=== PATIENT | male | born 1965 | race Caucasian/White ===

== ENCOUNTER → 2017-01-26 | Outpatient (CLI) | payer MEDICARE ==
[~2017-01-26] MED LIST: ASPIR 8181 MG PO; ASPIRIN CHEWABL81 MG PO; CATAPRES 0.1MG0.1 MG PO; CIPROFLOXACIN500 MG PO; COLCRYS0.6 MG PO; COREG 12.5MG12.5 MG PO; COREG 3.125M3.125 MG PO; ENTRESTO PO; FLEXERIL 10 MG10 MG PO; IMDUR ER TAB 3030 MG PO; INDOCIN 50 MG C50 MG PO; KLOR-CON M2020 MEQ PO; LANTUS SOL100 UNIT/1 SC; LANTUS SOL100 UNIT/1 SQ; LASIX20 MG PO; LEVAQUIN500 MG PO; LIPITOR TAB 2020 MG PO; LISINOPRIL40 MG PO; LORTAB 7.5-3251 EACH PO; MORPHINE SULFAT15 MG PO; NAMENDA 5 MG TAB5 MG PO; NEURONTIN 100100 MG PO; NEURONTIN 400400 MG PO; NITROGLYCERIN0.4 MG SL; NORCO 10-325 T1 EACH PO; PLAVIX 75 MG TA75 MG PO; PROTONIX 40 MG40 M1 PO; PROTONIX40 MG PO; SIMVASTATIN40 MG PO; TART CHERRY CA1 EACH PO; TIZANIDINE HCL4 MG PO; ZOCOR 40 MG TAB40 MG PO; ZOCOR40 MG PO; ZYLOPRIM 100 M100 MG PO; [UNRECOGNIZED DRUG - OTHER] PO
== END ==
LOC: RAD 12:48
DX: M54.2 Cervicalgia (principal); M54.9 Dorsalgia, unspecified; M25.562 Pain in left knee; M25.561 Pain in right knee; R05 Cough; M47.814 Spondylosis without myelopathy or radiculopathy, thoracic region; M47.816 Spondylosis without myelopathy or radiculopathy, lumbar region; M47.812 Spondylosis without myelopathy or radiculopathy, cervical region; M17.0 Bilateral primary osteoarthritis of knee; Z98.890 Other specified postprocedural states; Z88.0 Allergy status to penicillin; Z88.1 Allergy status to other antibiotic agents
CPT/HCPCS: 71020; 72050; 72072; 72110; 73564

== ENCOUNTER 2017-02-11 13:22 | Inpatient (IN) | payer MEDICARE ==
[~2017-02-11] VITALS: Ht 170.2 cm; Wt 99.3 kg
[~2017-02-11 13:22] MED LIST changes: -ASPIR 8181 MG PO; -ASPIRIN CHEWABL81 MG PO; -CATAPRES 0.1MG0.1 MG PO; -CIPROFLOXACIN500 MG PO; -COLCRYS0.6 MG PO; -COREG 12.5MG12.5 MG PO; -COREG 3.125M3.125 MG PO; -ENTRESTO PO; -FLEXERIL 10 MG10 MG PO; -IMDUR ER TAB 3030 MG PO; -KLOR-CON M2020 MEQ PO; -LANTUS SOL100 UNIT/1 SC; -LANTUS SOL100 UNIT/1 SQ; -LASIX20 MG PO; -LEVAQUIN500 MG PO; -LORTAB 7.5-3251 EACH PO; -MORPHINE SULFAT15 MG PO; -NAMENDA 5 MG TAB5 MG PO; -NEURONTIN 100100 MG PO; -NEURONTIN 400400 MG PO; -NITROGLYCERIN0.4 MG SL; -NORCO 10-325 T1 EACH PO; -PLAVIX 75 MG TA75 MG PO; -PROTONIX 40 MG40 M1 PO; -PROTONIX40 MG PO; -TART CHERRY CA1 EACH PO; -TIZANIDINE HCL4 MG PO; -ZOCOR 40 MG TAB40 MG PO; -ZOCOR40 MG PO; -ZYLOPRIM 100 M100 MG PO; -[UNRECOGNIZED DRUG - OTHER] PO
[2017-02-11 14:28] LABS: HEMOGLOBIN 13.2 gm/dl (14.0-17.5); RED BLOOD COUNT 4.44 M/UL (4.20-5.50)
[2017-02-11 14:53] LABS: BUN/CREATININE RATIO 10 (0-10)
[2017-02-12 06:41] LABS: RED BLOOD COUNT 4.45 M/UL (4.20-5.50)
--- NOTE | 2017-02-12 14:43 | NUR ---
PATIENT GOING TO SMOKE WITH FAMILY MEMBER INSTRUCTED SMOKING CESSATION AND OUR FACILITY A NON SMOKING FACILITY [facility]MBERTO UNDERSTANDING
[2017-02-13 05:43] LABS: HEMOGLOBIN 13.1 gm/dl (14.0-17.5); RED BLOOD COUNT 4.49 M/UL (4.20-5.50); WHITE BLOOD COUNT 7.1 K/UL (4.5-11.0)
[2017-02-13 06:03] LABS: BUN/CREATININE RATIO 19 (0-10)
[2017-02-13] MEDS ORDERED: LORTAB 7.5-3251 EACH PO (18:59)
[2017-02-13] MEDS ORDERED: LASIX20 MG PO (19:01)
[2017-06-24] MEDS ORDERED: PROTONIX40 MG PO (03:03)
[2017-06-24] MEDS ORDERED: ASPIRIN CHEWABL81 MG PO (03:04)
[2017-06-24] MEDS ORDERED: COLCRYS0.6 MG PO (03:04)
[2017-06-24] MEDS ORDERED: NAMENDA 5 MG TAB5 MG PO (03:05)
[2017-06-24] MEDS ORDERED: ENTRESTO PO (03:17)
[2017-06-24] MEDS ORDERED: LASIX20 MG PO (03:19)
[2017-06-24] MEDS ORDERED: LIPITOR TAB 2020 MG PO (03:20)
[2017-06-24] MEDS ORDERED: PLAVIX 75 MG TA75 MG PO (03:20)
[2017-06-24] MEDS ORDERED: COREG 12.5MG12.5 MG PO (03:21)
[2017-06-24] MEDS ORDERED: ZYLOPRIM 100 M100 MG PO (03:22)
[2017-06-24] MEDS ORDERED: NEURONTIN 400400 MG PO (03:22)
[2017-06-24] MEDS ORDERED: TIZANIDINE HCL4 MG PO (03:23)
[2017-06-24] MEDS ORDERED: MORPHINE SULFAT15 MG PO (03:24)
[2017-06-25] MEDS ORDERED: KLOR-CON M2020 MEQ PO (16:21)
[2017-07-11] MEDS ORDERED: NEURONTIN 100100 MG PO (00:04)
[2017-07-11] MEDS ORDERED: NAMENDA 5 MG TAB5 MG PO (00:06)
[2017-07-11] MEDS ORDERED: ASPIR 8181 MG PO (00:07)
[2017-07-11] MEDS ORDERED: PLAVIX 75 MG TA75 MG PO (00:08)
[2017-07-11] MEDS ORDERED: PROTONIX 40 MG40 M1 PO (00:08)
[2017-07-11] MEDS ORDERED: COREG 3.125M3.125 MG PO ×2 (00:08→00:19)
[2017-07-11] MEDS ORDERED: LANTUS SOL100 UNIT/1 SQ (00:09)
[2017-07-11] MEDS ORDERED: FLEXERIL 10 MG10 MG PO (00:10)
[2017-07-11] MEDS ORDERED: ZOCOR40 MG PO (00:10)
[2017-07-11] MEDS ORDERED: ZYLOPRIM 100 M100 MG PO (00:10)
[2017-07-11] MEDS ORDERED: LIPITOR TAB 2020 MG PO (00:11)
[2017-07-11] MEDS ORDERED: LORTAB 7.5-3251 EACH PO (00:11)
[2017-07-11] MEDS ORDERED: LASIX20 MG PO (00:12)
[2017-07-11] MEDS ORDERED: [UNRECOGNIZED DRUG - OTHER] PO (00:16)
[2017-07-11] MEDS ORDERED: NITROGLYCERIN0.4 MG SL (00:17)
[2017-07-11] MEDS ORDERED: TART CHERRY CA1 EACH PO (00:17)
[2017-07-11] MEDS ORDERED: ZOCOR 40 MG TAB40 MG PO (00:18)
[2017-07-11] MEDS ORDERED: LEVAQUIN500 MG PO (00:18)
[2017-07-11] MEDS ORDERED: CIPROFLOXACIN500 MG PO (00:18)
[2017-07-11] MEDS ORDERED: CATAPRES 0.1MG0.1 MG PO (00:23)
[2017-07-11] MEDS ORDERED: NORCO 10-325 T1 EACH PO (00:24)
[2017-07-11] MEDS ORDERED: LANTUS SOL100 UNIT/1 SC (00:25)
[2017-07-11] MEDS ORDERED: IMDUR ER TAB 3030 MG PO (12:43)
== END 2017-02-13 19:30 | disposition home or self-care (01) | DRG 291 ==
LOC: ER1 13:22 → ZEROF 15:30 → M/S 18:50
PROVIDERS: Emergency Medicine; Internal Medicine Interventional Cardiology; ADMIT Emergency Medicine
DX: I13.0 Hypertensive heart and chronic kidney disease with heart failure and stage 1 through stage 4 chronic kidney disease, or unspecified chronic kidney disease (principal); I50.43 Acute on chronic combined systolic (congestive) and diastolic (congestive) heart failure; N17.9 Acute kidney failure, unspecified; I69.351 Hemiplegia and hemiparesis following cerebral infarction affecting right dominant side; N39.0 Urinary tract infection, site not specified; I25.10 Atherosclerotic heart disease of native coronary artery without angina pectoris; R07.9 Chest pain, unspecified; D69.6 Thrombocytopenia, unspecified; E11.22 Type 2 diabetes mellitus with diabetic chronic kidney disease; N18.1 Chronic kidney disease, stage 1; F17.210 Nicotine dependence, cigarettes, uncomplicated; I25.5 Ischemic cardiomyopathy; E66.9 Obesity, unspecified; Z68.34 Body mass index [BMI] 34.0-34.9, adult; Z95.1 Presence of aortocoronary bypass graft; Z95.5 Presence of coronary angioplasty implant and graft; Z86.39 Personal history of other endocrine, nutritional and metabolic disease; E78.5 Hyperlipidemia, unspecified; D64.9 Anemia, unspecified; G89.29 Other chronic pain; M54.9 Dorsalgia, unspecified; H54.8 Legal blindness, as defined in USA; I25.2 Old myocardial infarction; Z88.0 Allergy status to penicillin; Z88.3 Allergy status to other anti-infective agents; Z91.018 Allergy to other foods; Z79.82 Long term (current) use of aspirin; Z79.4 Long term (current) use of insulin; Z79.899 Other long term (current) drug therapy; Z28.21 Immunization not carried out because of patient refusal; Z82.49 Family history of ischemic heart disease and other diseases of the circulatory system
CPT/HCPCS: ECHO; 36415; 71010; 80048; 80053; 81001; 82550; 82553; 82962; 83036; 83735; 83874; 83880; 84484; 85025; 85027; 93005; 93306; 94640; 94664; 96374; 99285; J1650; J1940; J2270

== ENCOUNTER → 2017-02-17 | Outpatient (CLI) | payer MEDICARE ==
[~2017-02-17] MED LIST changes: +ASPIR 8181 MG PO; +ASPIRIN CHEWABL81 MG PO; +CATAPRES 0.1MG0.1 MG PO; +CIPROFLOXACIN500 MG PO; +COLCRYS0.6 MG PO; +COREG 12.5MG12.5 MG PO; +COREG 3.125M3.125 MG PO; +ENTRESTO PO; +FLEXERIL 10 MG10 MG PO; +IMDUR ER TAB 3030 MG PO; +KLOR-CON M2020 MEQ PO; +LANTUS SOL100 UNIT/1 SC; +LANTUS SOL100 UNIT/1 SQ; +LASIX20 MG PO; +LEVAQUIN500 MG PO; +LORTAB 7.5-3251 EACH PO; +MORPHINE SULFAT15 MG PO; +NAMENDA 5 MG TAB5 MG PO; +NEURONTIN 100100 MG PO; +NEURONTIN 400400 MG PO; +NITROGLYCERIN0.4 MG SL; +NORCO 10-325 T1 EACH PO; +PLAVIX 75 MG TA75 MG PO; +PROTONIX 40 MG40 M1 PO; +PROTONIX40 MG PO; +TART CHERRY CA1 EACH PO; +TIZANIDINE HCL4 MG PO; +ZOCOR 40 MG TAB40 MG PO; +ZOCOR40 MG PO; +ZYLOPRIM 100 M100 MG PO; +[UNRECOGNIZED DRUG - OTHER] PO
== END ==
LOC: HEART 5 08:31
DX: I25.10 Atherosclerotic heart disease of native coronary artery without angina pectoris (principal); I50.20 Unspecified systolic (congestive) heart failure; I51.9 Heart disease, unspecified
CPT/HCPCS: 78452; A9502; J2785

== ENCOUNTER → 2017-03-10 | Outpatient (CLI) | payer MEDICARE | LOC: CT 03-03 08:00 | DX: M54.5 Low back pain (principal); M50.323 Other cervical disc degeneration at C6-C7 level; Z98.890 Other specified postprocedural states | CPT/HCPCS: 72125 ==

== ENCOUNTER → 2017-04-13 | Outpatient (CLI) | payer MEDICARE ==
[2017-04-13 12:50] LABS: HEMOGLOBIN 16.3 gm/dl (14.0-17.5); RED BLOOD COUNT 5.57 M/UL (4.20-5.50); WHITE BLOOD COUNT 8.4 K/UL (4.5-11.0)
[2017-04-13 13:11] LABS: BUN/CREATININE RATIO 9 (0-10)
== END ==
LOC: LAB 12:05
PROVIDERS: Internal Medicine Cardiovascular Disease
DX: I50.22 Chronic systolic (congestive) heart failure (principal); I42.9 Cardiomyopathy, unspecified; I25.10 Atherosclerotic heart disease of native coronary artery without angina pectoris; Z95.1 Presence of aortocoronary bypass graft
CPT/HCPCS: 71020; 80048; 85025

== ENCOUNTER 2017-04-14 06:58 | Outpatient (CLI) | payer MEDICARE ==
[~2017-04-14] VITALS: Ht 170.2 cm; Wt 106.6 kg
[~2017-04-14 06:58] MED LIST changes: -ASPIR 8181 MG PO; -ASPIRIN CHEWABL81 MG PO; -CATAPRES 0.1MG0.1 MG PO; -CIPROFLOXACIN500 MG PO; -COLCRYS0.6 MG PO; -COREG 12.5MG12.5 MG PO; -COREG 3.125M3.125 MG PO; -ENTRESTO PO; -FLEXERIL 10 MG10 MG PO; -IMDUR ER TAB 3030 MG PO; -KLOR-CON M2020 MEQ PO; -LANTUS SOL100 UNIT/1 SC; -LANTUS SOL100 UNIT/1 SQ; -LEVAQUIN500 MG PO; -MORPHINE SULFAT15 MG PO; -NAMENDA 5 MG TAB5 MG PO; -NEURONTIN 100100 MG PO; -NEURONTIN 400400 MG PO; -NITROGLYCERIN0.4 MG SL; -NORCO 10-325 T1 EACH PO; -PLAVIX 75 MG TA75 MG PO; -PROTONIX 40 MG40 M1 PO; -PROTONIX40 MG PO; -TART CHERRY CA1 EACH PO; -TIZANIDINE HCL4 MG PO; -ZOCOR 40 MG TAB40 MG PO; -ZOCOR40 MG PO; -ZYLOPRIM 100 M100 MG PO; -[UNRECOGNIZED DRUG - OTHER] PO
[2017-06-24] MEDS ORDERED: PROTONIX40 MG PO (03:03)
[2017-06-24] MEDS ORDERED: ASPIRIN CHEWABL81 MG PO (03:04)
[2017-06-24] MEDS ORDERED: COLCRYS0.6 MG PO (03:04)
[2017-06-24] MEDS ORDERED: NAMENDA 5 MG TAB5 MG PO (03:05)
[2017-06-24] MEDS ORDERED: ENTRESTO PO (03:17)
[2017-06-24] MEDS ORDERED: LASIX20 MG PO (03:19)
[2017-06-24] MEDS ORDERED: LIPITOR TAB 2020 MG PO (03:20)
[2017-06-24] MEDS ORDERED: PLAVIX 75 MG TA75 MG PO (03:20)
[2017-06-24] MEDS ORDERED: COREG 12.5MG12.5 MG PO (03:21)
[2017-06-24] MEDS ORDERED: NEURONTIN 400400 MG PO (03:22)
[2017-06-24] MEDS ORDERED: ZYLOPRIM 100 M100 MG PO (03:22)
[2017-06-24] MEDS ORDERED: TIZANIDINE HCL4 MG PO (03:23)
[2017-06-24] MEDS ORDERED: MORPHINE SULFAT15 MG PO (03:24)
[2017-06-25] MEDS ORDERED: KLOR-CON M2020 MEQ PO (16:21)
[2017-07-11] MEDS ORDERED: NEURONTIN 100100 MG PO (00:04)
[2017-07-11] MEDS ORDERED: NAMENDA 5 MG TAB5 MG PO (00:06)
[2017-07-11] MEDS ORDERED: ASPIR 8181 MG PO (00:07)
[2017-07-11] MEDS ORDERED: PLAVIX 75 MG TA75 MG PO (00:08)
[2017-07-11] MEDS ORDERED: COREG 3.125M3.125 MG PO ×2 (00:08→00:19)
[2017-07-11] MEDS ORDERED: PROTONIX 40 MG40 M1 PO (00:08)
[2017-07-11] MEDS ORDERED: LANTUS SOL100 UNIT/1 SQ (00:09)
[2017-07-11] MEDS ORDERED: ZOCOR40 MG PO (00:10)
[2017-07-11] MEDS ORDERED: ZYLOPRIM 100 M100 MG PO (00:10)
[2017-07-11] MEDS ORDERED: FLEXERIL 10 MG10 MG PO (00:10)
[2017-07-11] MEDS ORDERED: LIPITOR TAB 2020 MG PO (00:11)
[2017-07-11] MEDS ORDERED: LORTAB 7.5-3251 EACH PO (00:11)
[2017-07-11] MEDS ORDERED: LASIX20 MG PO (00:12)
[2017-07-11] MEDS ORDERED: [UNRECOGNIZED DRUG - OTHER] PO (00:16)
[2017-07-11] MEDS ORDERED: NITROGLYCERIN0.4 MG SL (00:17)
[2017-07-11] MEDS ORDERED: TART CHERRY CA1 EACH PO (00:17)
[2017-07-11] MEDS ORDERED: CIPROFLOXACIN500 MG PO (00:18)
[2017-07-11] MEDS ORDERED: ZOCOR 40 MG TAB40 MG PO (00:18)
[2017-07-11] MEDS ORDERED: LEVAQUIN500 MG PO (00:18)
[2017-07-11] MEDS ORDERED: CATAPRES 0.1MG0.1 MG PO (00:23)
[2017-07-11] MEDS ORDERED: NORCO 10-325 T1 EACH PO (00:24)
[2017-07-11] MEDS ORDERED: LANTUS SOL100 UNIT/1 SC (00:25)
[2017-07-11] MEDS ORDERED: IMDUR ER TAB 3030 MG PO (12:43)
== END 2017-04-15 09:58 | disposition home or self-care (01) ==
LOC: CATH 06:58 → PROG CARE 11:10 → CATH 04-15 09:58 → PROG CARE 04-15 09:58
PROC: 02HK3KZ Insertion of Defibrillator Lead into Right Ventricle, Percutaneous Approach (ICD-10-PCS; principal; 2017-04-14)
PROC: 0JH609Z Insertion of Cardiac Resynchronization Defibrillator Pulse Generator into Chest Subcutaneous Tissue and Fascia, Open Approach (ICD-10-PCS; principal; 2017-04-14)
PROC: 02H63KZ Insertion of Defibrillator Lead into Right Atrium, Percutaneous Approach (ICD-10-PCS; principal; 2017-04-14)
PROC: 4B02XTZ Measurement of Cardiac Defibrillator, External Approach (ICD-10-PCS; principal; 2017-04-14)
DX: I11.0 Hypertensive heart disease with heart failure (principal); Z00.6 Encounter for examination for normal comparison and control in clinical research program; I50.22 Chronic systolic (congestive) heart failure; I25.5 Ischemic cardiomyopathy; I42.0 Dilated cardiomyopathy; I25.2 Old myocardial infarction; I25.10 Atherosclerotic heart disease of native coronary artery without angina pectoris; E11.42 Type 2 diabetes mellitus with diabetic polyneuropathy; I45.4 Nonspecific intraventricular block; Z95.1 Presence of aortocoronary bypass graft; Z88.0 Allergy status to penicillin; Z88.3 Allergy status to other anti-infective agents; Z79.02 Long term (current) use of antithrombotics/antiplatelets; Z79.82 Long term (current) use of aspirin; Z79.4 Long term (current) use of insulin; Z79.891 Long term (current) use of opiate analgesic; E78.5 Hyperlipidemia, unspecified; Z95.5 Presence of coronary angioplasty implant and graft; I69.398 Other sequelae of cerebral infarction; H54.8 Legal blindness, as defined in USA; M19.90 Unspecified osteoarthritis, unspecified site; F32.9 Major depressive disorder, single episode, unspecified; M10.9 Gout, unspecified; I08.2 Rheumatic disorders of both aortic and tricuspid valves; I27.2 Other secondary pulmonary hypertension; G47.30 Sleep apnea, unspecified; J45.909 Unspecified asthma, uncomplicated; Z87.891 Personal history of nicotine dependence
CPT/HCPCS: 33225; 33249; 71010; 82962; 93005; 93641; C1777; C1882; C1898; C1900; J1200; J1644; J2250; J3010; J3370; J7040; J7050; J7070; Q9965

== ENCOUNTER → 2017-04-30 | Outpatient (CLI) | payer MEDICARE ==
[~2017-04-30] MED LIST changes: +ASPIR 8181 MG PO; +ASPIRIN CHEWABL81 MG PO; +CATAPRES 0.1MG0.1 MG PO; +CIPROFLOXACIN500 MG PO; +COLCRYS0.6 MG PO; +COREG 12.5MG12.5 MG PO; +COREG 3.125M3.125 MG PO; +ENTRESTO PO; +FLEXERIL 10 MG10 MG PO; +IMDUR ER TAB 3030 MG PO; +KLOR-CON M2020 MEQ PO; +LANTUS SOL100 UNIT/1 SC; +LANTUS SOL100 UNIT/1 SQ; +LEVAQUIN500 MG PO; +MORPHINE SULFAT15 MG PO; +NAMENDA 5 MG TAB5 MG PO; +NEURONTIN 100100 MG PO; +NEURONTIN 400400 MG PO; +NITROGLYCERIN0.4 MG SL; +NORCO 10-325 T1 EACH PO; +PLAVIX 75 MG TA75 MG PO; +PROTONIX 40 MG40 M1 PO; +PROTONIX40 MG PO; +TART CHERRY CA1 EACH PO; +TIZANIDINE HCL4 MG PO; +ZOCOR 40 MG TAB40 MG PO; +ZOCOR40 MG PO; +ZYLOPRIM 100 M100 MG PO; +[UNRECOGNIZED DRUG - OTHER] PO
== END ==
LOC: CT 04-16 08:00
DX: M54.2 Cervicalgia (principal); G89.4 Chronic pain syndrome; M54.41 Lumbago with sciatica, right side; M47.892 Other spondylosis, cervical region; M47.896 Other spondylosis, lumbar region; Z98.1 Arthrodesis status
CPT/HCPCS: 72125; 72131

== ENCOUNTER → 2021-04-08 | Outpatient (CLI) | payer OTHER ==
[~2021-04-08] MED LIST changes: +BUMETANIDE1 MG PO; +COLCHICINE 0.60.6 MG PO; +COREG6.25 MG PO; +DILANTIN100 MG PO; +ECOTRIN81 MG PO; +ENTRESTO 97 MG1 EACH PO; +LANTUS100 UNIT/1 SQ; +NITROSTAT0.4 MG SL; +NORVASC 5 MG TAB5 MG PO; +WELLBUTRIN SR150 M1 PO; +ZANAFLEX4 MG PO; +ZYLOPRIM 300 M300 MG PO
== END ==
LOC: EXRD 12:50
DX: R80.9 Proteinuria, unspecified (principal); R10.9 Unspecified abdominal pain; N28.1 Cyst of kidney, acquired
CPT/HCPCS: 76775

== ENCOUNTER → 2021-06-03 | Outpatient (CLI) | payer OTHER | LOC: CT 13:30 | DX: R31.9 Hematuria, unspecified (principal); R10.9 Unspecified abdominal pain | CPT/HCPCS: 36415; 82565; Q9967 ==

== ENCOUNTER 2022-04-05 18:47 | Emergency (ER) | payer MEDICARE ==
[2022-04-05] MEDS ORDERED: VOLTAREN GEL 1 % TOP (21:12)
== END 2022-04-05 21:35 | disposition home or self-care (01) ==
LOC: ER1 18:47
DX: M25.572 Pain in left ankle and joints of left foot (principal); E11.9 Type 2 diabetes mellitus without complications; I11.9 Hypertensive heart disease without heart failure; E78.5 Hyperlipidemia, unspecified; K21.9 Gastro-esophageal reflux disease without esophagitis; F17.210 Nicotine dependence, cigarettes, uncomplicated; Z79.84 Long term (current) use of oral hypoglycemic drugs; Z79.02 Long term (current) use of antithrombotics/antiplatelets; Z95.0 Presence of cardiac pacemaker; Z95.1 Presence of aortocoronary bypass graft; Z88.0 Allergy status to penicillin; Z88.1 Allergy status to other antibiotic agents
CPT/HCPCS: 73590; 73610; 99283

== ENCOUNTER → 2022-04-15 | Outpatient (CLI) | payer MEDICARE ==
[~2022-04-15] MED LIST changes: +VOLTAREN GEL 1 % TOP
== END ==
LOC: US 13:30
DX: I73.9 Peripheral vascular disease, unspecified (principal); I82.402 Acute embolism and thrombosis of unspecified deep veins of left lower extremity
CPT/HCPCS: 93971

== ENCOUNTER → 2022-04-17 | Outpatient (CLI) | payer MEDICARE | LOC: KOH-I 13:24 | DX: F17.210 Nicotine dependence, cigarettes, uncomplicated (principal) | CPT/HCPCS: 71271 ==

== ENCOUNTER → 2022-08-04 | Outpatient (CLI) | payer MEDICARE | LOC: HEART 5 13:16 | DX: I50.22 Chronic systolic (congestive) heart failure (principal); R06.02 Shortness of breath; I08.1 Rheumatic disorders of both mitral and tricuspid valves | CPT/HCPCS: 93306 ==